=== PATIENT | female | born 1995 | race Caucasian/White ===

== ENCOUNTER 2023-02-10 00:21 | Observation (INO) | payer MEDICAID, OTHER ==
[~2023-02-10] VITALS: Ht 162.6 cm; Wt 90.7 kg
[2023-02-10] MEDS ORDERED: PNV1TABL61 PO (01:20)
[2023-02-10] MEDS ORDERED: NITR-87 PO (01:20)
[2023-02-10] MEDS ORDERED: CEFAZOLIN 1000MG PREMIX 50 ML IV NR (01:45)
[2023-02-10] MEDS: LACTATED RINGERS 1,000 ML IV SCH ×3 (02:04→04:09)
[2023-02-10] MEDS ORDERED: ONDANSETRON HCL 4MG/2ML INJ IV PRN (02:15)
[2023-02-10 02:42] LABS: CLARITY URINE CLEAR (CLEAR); COLOR URINE YELLOW (YELLOW); KETONES URINE 4+ (NEGATIVE); LEUKOCYTE ESTERASE URINE 1+ (NEGATIVE); NITRITE URINE NEGATIVE (NEGATIVE); OCCULT BLOOD URINE NEGATIVE (NEGATIVE); PH URINE 5.5 (4.5-8.0); PROTEIN URINE NEGATIVE (NEGATIVE); UROBILINOGEN URINE 0.2 E.U./dL (0.2-1.0)
[2023-02-10] MEDS ORDERED: ACETAMINOPHEN 500MG TABLET PO NR (03:15)
[2023-02-10 03:24] VITALS: TEMP 98.4
[2023-02-10 06:49] LABS: CHLORIDE 111 mEq/L (98-107)
[2023-02-10 06:50] LABS: BASOPHILS % 0.1 % (0.0-2.0); EOSINOPHILS % 0.5 % (0.0-5.0); LYMPHOCYTES % 10.9 % (20.0-50.0); MEAN CORPUSCULAR HEMOGLOBIN 30.1 pg (28.0-32.0); MEAN PLATELET VOLUME 9.7 fl (7.4-10.4); MONOCYTES % 3.5 % (2.0-8.0); PLATELET 208 x1000/uL (130-400); RED BLOOD CELL COUNT 3.33 mill/uL (4.2-5.4); RED CELL DISTRIBUTION WIDTH 13.3 % (11.6-14.6)
== END 2023-02-10 08:30 | disposition home or self-care (01) ==
LOC: 8 EST LDRP 00:21
PROVIDERS: ADMIT Obstetrics & Gynecology; ATTEND Obstetrics & Gynecology
DX: O21.2 Late vomiting of pregnancy (principal); O26.892 Other specified pregnancy related conditions, second trimester; R10.9 Unspecified abdominal pain; O34.32 Maternal care for cervical incompetence, second trimester; Z3A.21 21 weeks gestation of pregnancy
CPT/HCPCS: 59025; 96361; 96365; 80053; 81003; 85025; 36415; 76805; J0690; J7120; G0378 ×2